=== PATIENT | female | born 1960 | race Caucasian/White ===

== ENCOUNTER → 2016-07-29 | Outpatient (CLI) | payer OTHER ==
[~2016-07-29] MED LIST: ASPI81TA28 PO; BNC/20125 PO; CHOL100010 PO; CRS20 PO; CYAN100048 PO; ESCI1TAB9 PO; GABA1CAP4 PO; IBUP1TAB PO; INSDGIPEN SQ; MAGN400T5 PO; MELA1TAB3 PO; MELOXICAM PO; NVLGI/PEN SQ; OMEG12006 PO
--- NOTE | 2016-07-30 12:48 | MAMMOGRAPHY REPORT ---
BILATERAL DIGITAL SCREENING MAMMOGRAM TOMOSYNTHESIS WITH CAD: 07/29/2016 CLINICAL HISTORY: Routine screening. Patient has no complaints. TECHNIQUE: Breast tomosynthesis in addition to standard 2D mammography was performed. Current study was also evaluated with a Computer Aided Detection (CAD) system. COMPARISON: Comparison is made to exams dated: 07/25/2015 mammogram, 07/22/2014 mammogram, 07/21/2013 ma mmogram - [facility], 06/18/2012 mammogram, 05/09/2010 mammogram, and 06/06/2011 mamm ogram - [facility]. BREAST COMPOSITION: There are scattered areas of fibroglandular density in both breasts. FINDINGS: There are mild vascular calcifications in the breasts. No suspicious mass, architectural distortion or cluster of microcalcifications is seen. IMPRESSION: ACR BI-RADS CATEGORY 1: NEGATIVE There is no mammographic evidence of malignancy. A 1 year screening mammogram is recommended. The p atient will receive written notification of the results. Approximately 10% of breast cancers are not detected with mammography. A negative mammographic repor t should not delay biopsy if a clinically suggestive mass is present. Alva Morales M.D. ay/:07/29/2016 21:44:42 Basic Combatant Swimmer: Rachana VILLANUEVAR, M, [facility] letter sent: Normal 1/2 BI-RADS Code: ACR BI-RADS Category 1: Negative
== END | disposition home or self-care (01) ==
LOC: C.MAMM 09:35
PROVIDERS: ATTEND Obstetrics & Gynecology
DX: Z12.31 Encounter for screening mammogram for malignant neoplasm of breast (principal)

== ENCOUNTER 2017-06-18 10:12 | Inpatient (IN) | payer OTHER ==
[~2017-06-18] VITALS: Ht 175.3 cm; Wt 97.0 kg
[~2017-06-18 10:12] MED LIST changes: +GABA-1219 PO; -GABA1CAP4 PO
[2017-06-18 11:51] VITALS: BP 116/81; PULSE 92; TEMP 36.5; O2SAT 100
[2017-06-18] MEDS ORDERED: ALUMINUM/MAGNESIUM/SIMETH (MAALOX MAX) 30 ML UDC PO PRN (12:15)
[2017-06-18] MEDS ORDERED: ACETAMINOPHEN 325 MG TAB PO PRN (12:15)
[2017-06-18] MEDS ORDERED: POLYETHYLENE (MIRALAX) 17 GM PACK PO PRN (12:15)
[2017-06-18] MEDS ORDERED: ONDANSETRON INJ 2 MG/ML 2 ML VIAL IV PRN (12:15)
[2017-06-18] MEDS ORDERED: MAGNESIUM HYDROXIDE SUSP 30 ML UDC PO PRN (12:15)
[2017-06-18 12:45] LABS: HEMATOCRIT 38.6 % (37-47); HEMOGLOBIN 13.6 g/dL (12.0-16.0); MEAN CELL VOLUME 79.4 fL (80-100); MEAN CORPUSCULAR HGB CONC 35.2 g/dl (32-36); MEAN PLATELET VOLUME 8.7 fL (7.4-10.4); PLATELET COUNT 225 K/uL (130-400); RED CELL DISTRIBUTION WIDTH CV 14.4 % (11.5-14.5); RED CELL DISTRIBUTION WIDTH SD 41.4 fL (36.4-46.3); WHITE BLOOD COUNT 5.77 K/uL (4.8-10.8)
[2017-06-18 12:56] LABS: INR 0.9 (0.9-1.1); PTT PATIENT 22.8 SECONDS (21.0-31.0)
[2017-06-18] MEDS ORDERED: ALBUT/IPRATROP 3MG/0.5MG NEB 3 ML VIAL INH PRN (13:00)
[2017-06-18] MEDS ORDERED: PATIENT'S HEIGHT AND/OR WEIGHT NEEDED SCH (13:00)
[2017-06-18 13:29] LABS: BLOOD UREA NITROGEN 12 mg/dl (7-18); CALCIUM 8.6 mg/dl (8.5-10.1); CARBON DIOXIDE 24 mmol/L (21-32); CREATININE 1.19 mg/dl (0.60-1.20); GLUCOSE 360 mg/dl (70-99); POTASSIUM 3.3 mmol/L (3.5-5.1); SODIUM 130 mmol/L (136-145)
[2017-06-18 13:37] VITALS: BMI 31.6
[2017-06-18 13:38] LABS: INFLUENZA B PCR Neg for Influ B (NEG)
[2017-06-18 13:40] LABS: INFLUENZA A PCR POS for Influ A (NEG)
[2017-06-18] MEDS ORDERED: LPT40 PO (13:43)
[2017-06-18] MEDS ORDERED: INSDGIPEN SC (13:43)
[2017-06-18] MEDS ORDERED: BENZ100C18 PO (13:43)
[2017-06-18] MEDS ORDERED: HMLIS SQ (13:43)
[2017-06-18] MEDS ORDERED: NRN300 PO (13:43)
[2017-06-18] MEDS ORDERED: ASPEC81 PO (13:43)
[2017-06-18] MEDS ORDERED: MONT1TAB3 PO (13:43)
[2017-06-18] MEDS ORDERED: ASCA500 PO (13:43)
[2017-06-18] MEDS ORDERED: IPRASOL4 INH (13:43)
[2017-06-18] MEDS ORDERED: FEXO1TAB46 PO (13:43)
[2017-06-18] MEDS ORDERED: LSN25 PO (13:43)
[2017-06-18] MEDS ORDERED: VTMD1000 PO (13:43)
[2017-06-18] MEDS ORDERED: PARO10TA PO (13:43)
[2017-06-18] MEDS ORDERED: OSELTAMIVIR PHOSPHATE 75 MG CAP PO STA (13:47)
[2017-06-18] MEDS ORDERED: METHYLPREDNISOLONE IV 80 MG in SYRINGE 0 ML IV SCH (14:00)
[2017-06-18] MEDS ORDERED: POTASSIUM CHLORIDE 20 MEQ TABCR PO STA (14:13)
[2017-06-18] MEDS ORDERED: INSULIN ASPART 100 UNITS/ML 3 ML PEN SQ SCH (14:14)
[2017-06-18] MEDS ORDERED: DEXTROSE 50% 50 ML SYR IV PRN (14:15)
[2017-06-18] MEDS ORDERED: GLUCAGON FOR INJ 1 MG VIAL SQ PRN (14:15)
[2017-06-18] MEDS ORDERED: GLUCOSE 10 TABS/TUBE PO PRN (14:15)
[2017-06-18] MEDS ORDERED: GLUCOSE 40% GEL 15 GM TUBE PO PRN (14:15)
--- NOTE | 2017-06-18 14:31 | History and Physical ---
History & Physical Date & Time of Service: Jun 18, 2017 at 14:21 Chief Complaint: Severe Asthmatic Bronchitis Primary Care Physician: Yfn Joshua D.O. Past Medical/Surgical History Medical Problems: (1) Asthma Immunizations History of Influenza Vaccine: No History of Tetanus Vaccine?: Yes History of Pneumococcal: No History of Hepatitis B Vaccine: No Allergies Coded Allergies: Penicillins (Verified Allergy, Mild, HIVES, 08/18/13) Home Medications Scheduled Ascorbic Acid (Vitamin C), 1 TAB PO DAILY Aspirin (Aspirin Ec), 81 MG PO DAILY Aspirin (Aspirin EC Low Dose), 1 TAB PO DAILY Atorvastatin (Lipitor), 1 TAB PO DAILY Benzonatate (Tessalon Perles), 2 CAP PO TID Cholecalciferol (Vitamin D3), 2 TAB PO DAILY Fexofenadine Hcl (Petty), 180 MG PO DAILY Gabapentin (Gabapentin), 900 MG PO HS Insulin Glargine (Lantus Solostar), 30 UNITS SQ HS Insulin Glargine (Lantus Solostar), 60 UNIT SC HS Insulin Human Lispro (Humalog Kwikpen), 1 UNIT SQ UD Ipratropium-Albuterol (Duoneb), 1 TREATMENT INH QID Lisinopril (Lisinopril), 1 TAB PO DAILY Montelukast Sodium (Singulair), 1 TAB PO DAILY Paroxetine Hcl (Paxil), 1 TAB PO DAILY Physical Exam Vital Signs Date Time Temp Pulse Resp B/P (MAP) Pulse Ox O2 Delivery O2 Flow Rate FiO2 06/18/17 14:04 Room Air 06/18/17 11:51 36.5 92 20 116/81 (93) 100 Room Air Diagnostics Laboratory Results Results Past 24 Hours Test 06/18/17 12:28 06/18/17 12:32 Range/Units Influenza Type A (RT-PCR) POS for Influ A NEG Influenza Type B (RT-PCR) Neg for Influ B NEG White Blood Count 5.77 4.8-10.8 K/uL Red Blood Count 4.86 4.2-5.4 M/uL Hemoglobin 13.6 12.0-16.0 g/dL Hematocrit 38.6 37-47 % Mean Corpuscular Volume 79.4 80-100 fL Mean Corpuscular Hemoglobin 28.0 25-34 pg Mean Corpuscular Hemoglobin Concent 35.2 32-36 g/dl RDW Standard Deviation 41.4 36.4-46.3 fL RDW Coefficient of Variation 14.4 11.5-14.5 % Platelet Count 225 130-400 K/uL Mean Platelet Volume 8.7 7.4-10.4 fL Prothrombin Time 9.8 9.0-12.0 SECONDS Prothromb Time International Ratio 0.9 0.9-1.1 Activated Partial Thromboplast Time 22.8 21.0-31.0 SECONDS Partial Thromboplastin Ratio 0.9 Sodium Level 130 136-145 mmol/L Potassium Level 3.3 3.5-5.1 mmol/L Chloride Level 96 98-107 mmol/L Carbon Dioxide Level 24 21-32 mmol/L Anion Gap 10.0 3-11 mmol/L Blood Urea Nitrogen 12 7-18 mg/dl Creatinine 1.19 0.60-1.20 mg/dl Estimated GFR () 59.5 Estimated GFR (Non- 51.4 BUN/Creatinine Ratio 10.3 10-20 Random Glucose 360 70-99 mg/dl Calcium Level 8.6 8.5-10.1 mg/dl Beta-Hydroxybutyric Acid 3.87 0.2-2.81 mg/dL Procalcitonin < 0.05 0-0.5 ng/ml Impression Assessment and Plan admit #[id number] Resuscitation Status VTE Prophylaxis Will order VTE Prophylaxis: Yes
--- NOTE | 2017-06-18 14:50 | HISTORY & PHYSICAL EXAMINATION ---
DATE OF ADMISSION: 06/18/2017 CHIEF COMPLAINT: Cough and shortness of breath. HISTORY OF PRESENT ILLNESS: The patient is a very pleasant 56-year-old female who notes that basically she has been sick nonstop since about the second week of February. She has had cough, shortness of breath, wheezing. She does note the last couple days have been worse. Her overall pattern has been that of an ongoing illness and on the last few days where she does note also that she was recently unfortunately around a friend who came down with influenza. However, she does note that her symptoms have really been ongoing for months. Per Dr. Galarza, she has had a violent cough beginning around [place] time, chest pressure worsened with coughing. She has had a cardiac workup that was negative. CT of the chest with adenopathy, mild bronchial wall thickening suggesting bronchitis, has been on multiple courses of antibiotics and apparently oral steroids, but continues to have coughing paroxysms that lead to several bouts of emesis daily. She is extremely tired, fatigued, chronic cough, hemoptysis has been noted. She denies fevers, chills, or sweats. She has not had flu shot, not up to date on pneumonia vaccine. To me, she also notes that she has had dripping from her washing machine, dripping through to the kitchen and she does wonder if she has mold. REVIEW OF SYSTEMS: Otherwise negative, except for as above. PAST MEDICAL HISTORY: Includes chronic asthmatic bronchitis, type 1 diabetes uncontrolled, depression, hyperlipidemia, and hypertension. HOME MEDICATIONS: Petty 180 mg daily, vitamin C 500 mg daily, aspirin 81 mg daily, atorvastatin 40 mg daily, Tessalon 200 mg t.i.d. p.r.n. cough, gabapentin 900 mg at bedtime, Humalog 1 unit per 5 carbs at breakfast and lunch 1 unit per 3 carbs at dinner, DuoNebs, Lantus 60 units at bedtime, lisinopril 2.5 daily, Paxil 10 mg daily, Singulair 10 mg daily, albuterol HFA q. 4 hours p.r.n. shortness of breath or wheeze and vitamin D 2000 international units daily. PAST SURGICAL HISTORY: Includes back surgery. FAMILY HISTORY: Includes her dad having had cardiovascular disease. There is also a family history of hypertension and hyperlipidemia. SOCIAL HISTORY: She is . She is never a smoker. No significant alcohol use. ALLERGIES: LISTED PENICILLINS. PHYSICAL EXAMINATION: VITAL SIGNS: Temp 36.5, pulse 92, respiratory rate 20, blood pressure 116/81, 100% on room air. GENERAL: She is awake, alert, oriented x3, fatigued appearing, but otherwise in no acute distress. HEENT: Normocephalic, atraumatic. Mucous membranes are moist. CARDIOVASCULAR: Regular without rubs, murmurs, or gallops. LUNGS: Diminished bibasilar with scattered wheeze and rhonchi throughout, more in the mid lungs and upper lungs and again definitely quite quiet at the bases. No accessory muscle use. ABDOMEN: Soft, nondistended, nontender, no masses or organomegaly. EXTREMITIES: Without cyanosis, clubbing or edema. No calf tenderness. SKIN: Shows no rashes, no pallor or icterus. NEUROLOGIC: Shows cranial nerves II-XII to be grossly intact. Gross motor and sensory intact. MUSCULOSKELETAL: Yields no gross lesions. MENTAL STATUS: Shows good recent and remote recall. Normal mood and affect. Good judgment and insight. LABORATORIES AND DIAGNOSTICS: Unavailable at this time. I am ordering an initial workup as well as Dr. Galarza is asking for the CT scan done in [place] to be loaded into the system. ASSESSMENT AND PLAN: 1. Cough/ongoing asthmatic bronchitis. The most likely differential for this is that she is suffering from multiple acute respiratory illnesses. It has been a very bad flu in pneumonia season and with her baseline history of asthmatic allergic asthma, it is very, very probable that she has simply been suffering from 1 respiratory illness after another without any full ability to recover. So, it is quite probable that her likely markedly uncontrolled diabetes suppressing her immune system set her up for this, but in the meantime, she also appears to be acutely ill, probably with the flu or a flu-like illness on top of all of this. We will check a flu swab, treat with Tamiflu if positive given the severity of her illness. We will treat the asthmatic portion of this with steroids and nebulizers. We will check a procalcitonin to help tease apart if there is any subtle indication for antibiotics given that per Dr. Galarza none were noted on her review of her CT scan. We will ask pulmonary to see her. It is possible she may need a bronchoscopic evaluation and then we will follow her clinically. In regards to her possible mold exposure, it seems far more likely that she is suffering from repeated and recurrent respiratory illnesses during the middle and tail end of what has now been a rather bad flu season far more likely than anything subtle and somewhat more esoteric like a house mold exposure. However, I discussed with her that certainly we should not rule this out entirely empirically and if bronchoscopy is needed, that may provide some insight as well as if she gets better in the hospital, but gets worse whenever she goes home. She notes other than this current hospitalization, the only other time she was in the hospital was at 23 hours at [facility], certainly not enough time to remove her from the allergens should that be the case. 2. Uncontrolled type 1 diabetes. Her last A1c was 11.8 at the end of October last year. We will recheck an A1c certainly. I anticipate the need to dramatically ramp up her insulins with a degree of baseline poor control superimposed with current steroids and acute illness. 3. Influenza as above, Tamiflu. 4. Hypertension. Continue her lisinopril. 5. Hyperlipidemia. Continue Lipitor. 6. Deep venous thrombosis prophylaxis, Lovenox.
[2017-06-18] MEDS: ALBUT/IPRATROP 3MG/0.5MG NEB 3 ML VIAL INH SCH ×2 (15:13→19:30)
[2017-06-18 15:16] VITALS: PULSE 95; O2SAT 98
[2017-06-18] MEDS: BENZONATATE 100MG CAP PO SCH ×2 (15:29→20:00)
[2017-06-18 15:44] VITALS: BMI 31.6
[2017-06-18 16:00] VITALS: BP 141/82; PULSE 85; TEMP 36.4; O2SAT 95
[2017-06-18] MEDS ORDERED: ALBUT/IPRATROP 3MG/0.5MG NEB 3 ML VIAL INH SCH (16:00)
[2017-06-18] MEDS ORDERED: PNEUMOCOCCAL POLYSACCHARIDES 25 MCG/0.5 ML VIAL/SYR IM. ONE (16:00)
[2017-06-18] MEDS ORDERED: PNEUMOCOCCAL ADMINISTRATION CHARGE ONE (16:00)
[2017-06-18] MEDS ORDERED: PANTOprazole SOD 40 MG TAB PO STA (16:37)
[2017-06-18] MEDS ORDERED: ACETAMINOPHEN/CODEINE 300/30MG TAB PO PRN (17:30)
[2017-06-18 19:30] VITALS: PULSE 88; O2SAT 98
[2017-06-18] MEDS: OSELTAMIVIR PHOSPHATE 75 MG CAP PO SCH (20:00)
[2017-06-18] MEDS: ENOXAPARIN 40 MG/0.4 ML SYR SQ SCH (21:00)
[2017-06-18] MEDS: GABAPENTIN 300 MG CAP PO SCH (21:00)
[2017-06-18] MEDS ORDERED: INSULIN GLARGINE SOLOSTAR 100 UNITS/ML 3 ML PEN SQ SCH (21:00)
[2017-06-18] MEDS ORDERED: INSULIN GLARGINE SOLOSTAR 100 UNITS/ML 3 ML PEN SC SCH (21:00)
[2017-06-18] MEDS ORDERED: INSULIN HUMAN REGULAR IV BOLUS 2.5 UNIT in SYRINGE 0 ML IV SCH (21:30)
[2017-06-18] MEDS: INSULIN REGULAR 250 UNITS in SODIUM CHLORIDE 0.9% 250ML 250 ML IV SCH ×2 (21:30→23:18)
[2017-06-18 21:35] VITALS: PULSE 92; O2SAT 98
[2017-06-18] MEDS ORDERED: PHARMACY GLYCEMIC MGMT CONSULT PRN (22:00)
[2017-06-18 23:35] VITALS: BP 146/77; PULSE 82; TEMP 36.4; O2SAT 97
[2017-06-19] VITALS (8 sets, daily range): BP systolic 130–157; BP diastolic 79–83; PULSE 77–100; TEMP 36.5–36.7; O2SAT 96–99; Ht 175.3 cm; Wt 97.0 kg
[2017-06-19] MEDS: INSULIN REGULAR 250 UNITS in SODIUM CHLORIDE 0.9% 250ML 250 ML IV SCH ×8 (00:19→23:27)
[2017-06-19] MEDS: METHYLPREDNISOLONE IV 40 MG in SYRINGE 0 ML IV SCH ×2 (01:22→13:48)
[2017-06-19 06:58] LABS: HEMOGLOBIN A1C 11.3 % (4.5-5.6)
[2017-06-19] MEDS: ALBUT/IPRATROP 3MG/0.5MG NEB 3 ML VIAL INH SCH ×4 (07:17→19:10)
[2017-06-19 07:23] LABS: CALCIUM 9.2 mg/dl (8.5-10.1); CREATININE 0.86 mg/dl (0.60-1.20); POTASSIUM 4.2 mmol/L (3.5-5.1)
[2017-06-19] MEDS ORDERED: ASPIRIN 81 MG ECTAB PO SCH (08:00)
[2017-06-19] MEDS ORDERED: LISINOPRIL 2.5 MG TAB PO SCH (08:00)
--- NOTE | 2017-06-19 08:12 | PULMONARY CONSULTATION ---
DATE OF CONSULTATION: 06/18/2017 TIME: 04:25 p.m. HISTORY OF PRESENT ILLNESS: The patient is a 56-year-old female with a chief complaint of a severe cough. This began in about the second week of February. She went to an urgent care on March 16. She subsequently went to urgent care again on March 23 because she was not feeling better. She has followed up with her family doctor. Over the course of the winter, she has been treated with 3 courses of prednisone without any benefit. She has had antibiotics including azithromycin and doxycycline without benefit. She has had benzonatate without benefit. She has been on nebulizer treatments with albuterol and ipratropium without significant benefit. She had Advair without benefit and it seemed to bother her throat. The cough bothers her daytime and nighttime. She awakened several times at night. She has had severe episodes of coughing, which precipitated vomiting. On some days, this occurs 3 or 4 times. The cough is violent at times. She feels tight. She notices wheezing. She went on a cruise in the [facility] in the early . She was definitely sick before the cruise. The temperature was so cold that she actually was staying most of the time inside her cabin. Her has not been sick until just the last day or two. She has noticed a small amount of coryza in the past couple of days. She denies heartburn except recently she has been getting heartburn while she drinks coffee. She has had recurring nosebleeds on the left side. She states it is almost every day and she will have to pack it for a few minutes. PAST SURGICAL HISTORY: 1. Back surgery x2. 2. Deviated septum repair in May 2016. PAST MEDICAL HISTORY: 1. Diabetes mellitus x9 years. 2. Hypercholesterolemia. 3. Prior hypertension, but subsequently she had low blood pressure and has been off of medicines except for being on lisinopril which she states was not specifically for the blood pressure. 4. Mild obesity. SOCIAL HISTORY: Tobacco never. ETOH -- None. ALLERGIES: PENICILLIN. FAMILY HISTORY: Mother age 72, dementia. Father age 54, heart disease. MEDICATIONS AT HOME: 1. Ascorbic acid. 2. Aspirin. 3. Atorvastatin. 4. Benzonatate. 5. Cholecalciferol. 6. Fexofenadine. 7. Gabapentin. 8. Lantus insulin. 9. Humalog insulin. 10. Albuterol/ipratropium by nebulizer. 11. Lisinopril 2.5 mg daily, which she has been on for 8 months. 12. Montelukast 10 mg daily. 13. Paroxetine 10 mg daily. REVIEW OF SYSTEMS: Negative except for the above-mentioned complaints. ENVIRONMENTAL HISTORY: The patient has 2 cats, which she has had her entire life. [place]. PHYSICAL EXAMINATION: GENERAL: The patient is a pleasant 56-year-old female who was cooperative, alert and oriented. She was in no distress at rest, but she was frequently coughing. Weight is 97 kilograms. BMI is 31.6. VITAL SIGNS: Temperature is 36.5. HEENT: Pupils were reactive to light. Nares were unremarkable. Mouth exam was unremarkable. NECK: Palpation of the neck reveals no lymph nodes. CHEST: Her respiratory rate was 20 breaths per minute. Wheezing was heard posteriorly bilaterally. Mild scattered rales were heard. Oxygen saturation is 98%. ABDOMEN: Soft. Bowel sounds were present. There was no tenderness to palpation or masses. EXTREMITIES: Showed no cyanosis, clubbing or edema. No rashes were noted. The patient had a CT angio of the chest at [facility] in April 2017. There was no pulmonary emboli. She had some calcified mediastinal lymph nodes. LABORATORY DATA: White count is 5.77. Hemoglobin 13.6. Platelets 225,000. Sodium is 130, potassium 3.3, chloride 96, and bicarbonate 24. Random blood sugar was 360. BUN was 12 with a creatinine of 1.19. Procalcitonin is less than 0.05. Flu test is positive for flu A. IMPRESSIONS: 1. Intractable undeterminted etiology. 2. Influenza A. The etiology of the cough is not clear. On clinical grounds. She is sounded like asthmatic bronchitis. She has never coughed up any phlegm. She has not responded to any treatment. Could consider reflux worsening her symptoms. She has been on lisinopril for about 8 months. Her cough is dry as the lisinopril coughs are, but she does sound a little wheezy, which is less common. Nonetheless, I believe lisinopril should be stopped. I believe we should order hypersensitivity pneumonitis profile. She does require potassium supplementation. Dr. Galarza is planning on doing a scope on Friday unless her symptoms are much improved. The possibility exists that she does have a lot of inspissated secretions that cannot be cleared. In light of her severe elevation of blood sugars, I think the methylprednisolone should be decreased to a significantly lower dose, perhaps 40 mg q. 12 hours. Case discussed with Dr. Bonilla. Thank you for asking me to assist in her care. SULY
[2017-06-19] MEDS: PANTOprazole SOD 40 MG TAB PO SCH (08:25)
[2017-06-19] MEDS: OSELTAMIVIR PHOSPHATE 75 MG CAP PO SCH ×2 (08:25→20:47)
[2017-06-19] MEDS: ATORVASTATIN 40 MG TAB PO SCH (08:25)
[2017-06-19] MEDS: ASCORBIC ACID 500 MG TAB PO SCH (08:25)
[2017-06-19] MEDS: ASPIRIN 81 MG ECTAB PO SCH (08:26)
[2017-06-19] MEDS: CHOLECALCIFEROL 1000 INTER.UNIT TAB PO SCH (08:27)
[2017-06-19] MEDS: FEXOFENADINE HCL 180 MG TAB PO SCH (08:27)
[2017-06-19] MEDS: BENZONATATE 100MG CAP PO SCH ×3 (08:27→20:48)
[2017-06-19] MEDS: PAROXETINE 20 MG TAB PO SCH (08:27)
--- NOTE | 2017-06-19 08:41 | PULMONARY PROGRESS NOTE ---
DATE: 06/19/2017 TIME: 8:20 a.m. SUBJECTIVE: The patient's cough is still severe. It did not change much. She had marked difficulty sleeping last night. Part of this was because her sugars were significantly elevated and they were frequently checking her blood sugars. The patient states that she was given some cough medicine with codeine that did seem to help some. She thinks her wheezing might be a little less. Nonetheless, the cough has not changed. This, however, is how it has been for a few months. OBJECTIVE: GENERAL: The patient was coughing frequently. Temperature is 36.7. She has not had any documented fever since admission. ENT: Exam is unchanged from yesterday. CARDIAC: Heart rate is 84 beats per minute. The rhythm is regular. Blood pressure 130/83. Saturation is 99% on room air. LUNGS: Lung little reveal very slight wheeze posteriorly in the lower lung little. EXTREMITIES: Show no cyanosis, clubbing or edema. Blood sugar this morning is 223. It appears her maximum blood sugar was 351. IMPRESSIONS: 1. Intractable cough of undetermined etiology. 2. Influenza A -- doubt this is the cause of her cough. COMMENTS AND RECOMMENDATIONS: The patient is receiving IV steroids, although we had cut the dose down last evening. She is on nebulizer treatments. She is on montelukast. She is on fexofenadine as an antihistamine. She is now on pantoprazole for possible reflux. She is also on benzonatate Perles. In spite of all this, she is coughing significantly. It will take days to know if the lisinopril is causing the cough. Dr. Galarza was planning on doing a bronchoscopy for tomorrow. We will try and verify with him if indeed he is planning on doing that.
[2017-06-19] MEDS: INSULIN ASPART 100 UNITS/ML 3 ML PEN SC SCH ×2 (08:43→13:53)
[2017-06-19] MEDS ORDERED: INSULIN GLARGINE SOLOSTAR 100 UNITS/ML 3 ML PEN SC ONE (09:00)
--- NOTE | 2017-06-19 09:16 | Pharmacy Progress Note ---
Glycemic Control Intl Consult Date of Service Jun 19, 2017. Scope Glycemic Pharmacist consulted by Dr Walker on 06/18/17 for glycemic control and to write orders per [facility] inpatient glycemic control protocol Objective Weight (Kilograms): 97.000 Accuchecks BSG (last 24hrs): Test 06/18/17 12:32 06/18/17 15:32 06/18/17 17:19 06/18/17 20:07 Random Glucose 360 mg/dl (70-99) Bedside Glucose 303 mg/dl (70-90) 337 mg/dl (70-90) 351 mg/dl (70-90) Test 06/18/17 23:00 06/18/17 23:58 06/19/17 01:03 06/19/17 02:10 Bedside Glucose 350 mg/dl (70-90) 314 mg/dl (70-90) 286 mg/dl (70-90) 278 mg/dl (70-90) Test 06/19/17 03:04 06/19/17 04:15 06/19/17 05:03 06/19/17 06:03 Bedside Glucose 247 mg/dl (70-90) 229 mg/dl (70-90) 232 mg/dl (70-90) Random Glucose 237 mg/dl (70-99) Test 06/19/17 06:08 06/19/17 07:05 06/19/17 08:05 Bedside Glucose 252 mg/dl (70-90) 248 mg/dl (70-90) 223 mg/dl (70-90) Laboratory Data (last 24hrs) Test 06/18/17 12:32 06/19/17 06:03 Anion Gap 10.0 mmol/L 8.0 mmol/L BUN/Creatinine Ratio 10.3 16.9 Blood Urea Nitrogen 12 mg/dl 15 mg/dl Creatinine 1.19 mg/dl 0.86 mg/dl Potassium Level 3.3 mmol/L 4.2 mmol/L Sodium Level 130 mmol/L 133 mmol/L White Blood Count 5.77 K/uL Hemoglobin A1c 11.3 % HbA1c Test 06/19/17 06:03 Hemoglobin A1c 11.3 % (4.5-5.6) H Recent Pertinent Medications Outpatient Anti-diabetic Regimen: * Lantus 60 units qHS * Humalog using CR 1 unit per 5 gm CHO w/ breakfast and lunch, 1 unit per 3 gm CHO w/ dinner The patient is currently receiving: * Basal insulin: Lantus 60 units every 24 hours * Correctional/prandial insulin: Insulin drip per moderate stress protocol titrated to goal 140-180 mg/dL Risk Factors for Insulin Resistance: * Steroids: Solu-medrol 80 mg IV q8h started yesterday, this has been decreased to 40 mg IV q12h * Infection: Influenza * Diet: Regular diet Assessment & Plan ASSESSMENT: * 56 y/o female with reported type 1 diabetes, admitted for influenza/asthmatic bronchitis * Per CDE assessment, patient reports previously being on oral agents and switched to Lantus + Humalog. She definitely seems to be more of a type 2 diabetic with the history of oral agent use and high doses of insulin * A1c is uncontrolled. 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 She did NOT take her dose of Lantus on 06/17. * Upon admission, she had BSGs in the 300s and was started on an aggressive Novolog scale in addition to her outpatient Lantus dose. When pharmacy received the consult last evening, an insulin drip was initiated d/t sustained elevated BSGs after fairly high doses of Novolog and continued high dose steroids. * This AM, insulin drip at 7.2 units/hr and has been increasing. BSGs improved but still above goal. * Plan will be to continue the outpatient Lantus but increase by 50%, giving an additional dose this AM * Will also continue the insulin drip d/t high dose steroids and high drip rates. Of note, patient may be NPO tomorrow for a bronch. PLAN FOR INPATIENT GLYCEMIC CONTROL: * Continue insulin drip with goal 140-180 mg/dL * Will provide orders for d/c of drip if rates fall to less than 1 unit/hr once basal insulin back on board * Give additional 30 units of Lantus this AM, continue 60 units qPM * Use set carb ratio of 1 unit per 3 gm CHO instead of insulin drip carb ratio * Change diet to type 1 diabetes * Please note that the plan above was derived based on current level of insulin resistance and hospital stress. These recommendations are appropriate for inpatient admission only. Plan of care upon discharge will need to be reassessed to avoid potential outpatient hypo/hyperglycemia. Thank you.
[2017-06-19] MEDS ORDERED: NURSING VERBAL MED ORDER ONE (10:45)
--- NOTE | 2017-06-19 16:53 | Progress Note ---
Subjective Date of Service: Jun 19, 2017. Subjective Pt evaluation today including: conversation w/ patient, physical exam, chart review, lab review, review of studies, conversation w/ human capital consultant, review of inpatient medication list Still persistent cough, is nonproductive, especially when deep breathing, associated with mild chest wall sore because of the cough Review of Systems Constitutional: No fever, No chills, No sweats, No weight loss, No weakness, No fatigue, No problem reported Eyes: No worsening of vision, No eye pain, No redness, No discharge, No diplopia ENT: No hearing loss, No unusual epistaxis, No nasal symptoms, No sore throat, No tinnitus, No dental problems, No trouble swallowing Respiratory: + cough, No sputum, No wheezing, No shortness of breath, No dyspnea on exertion, No dyspnea at rest, No hemoptysis Cardiac: No chest pain, No orthopnea, No PND, No edema, No claudication, No palpitations Abdomen: No pain, No nausea, No vomiting, No diarrhea, No constipation Musculoskeletal: No joint pain, No muscle pain, No swelling, No calf pain Female : No dysuria, No urinary frequency, No hematuria, No incontinence, No abnormal vaginal bleeding, No vaginal discharge Neurologic: No memory loss, No paralysis, No weakness, No numbness/tingling, No vertigo, No balance problems Psychiatric: No depression symptoms, No anhedonism, No anxiety, No insomnia, No substance abuse Heme: No abnormal bleeding/bruising, No clotting problems, No swollen lymph nodes, No night sweats Endo: No fatigue, No excessive thirst, No excessive urination Skin: No rash, No itch, No new/changing skin lesions, No color change, No bleeding Objective Vital Signs Date Time Temp Pulse Resp B/P (MAP) Pulse Ox O2 Delivery O2 Flow Rate FiO2 06/19/17 16:00 98 Room Air 06/19/17 15:32 36.6 87 20 135/79 (97) 98 Room Air 06/19/17 15:23 86 14 97 Room Air 06/19/17 11:21 91 14 96 Room Air 06/19/17 08:00 Room Air 06/19/17 07:34 36.7 84 18 130/83 (99) 99 Room Air 06/19/17 07:17 78 14 98 Room Air 06/19/17 00:00 Room Air 06/18/17 23:35 36.4 82 18 146/77 (100) 97 Room Air 06/18/17 21:35 92 18 98 Room Air 06/18/17 19:30 88 16 98 Room Air Physical Exam General Appearance: WD/WN, no apparent distress Eyes: normal inspection, PERRL, EOMI, sclerae normal ENT: normal ENT inspection, hearing grossly normal, pharynx normal Neck: supple, no adenopathy, thyroid normal, no JVD, no carotid bruits, trachea midline Respiratory/Chest: chest non-tender, normal breath sounds, no respiratory distress, no accessory muscle use, + decreased breath sounds, + wheezing ( Occasion) Cardiovascular: regular rate, rhythm, no edema, no gallop, no JVD, no murmur Abdomen: normal bowel sounds, non tender, soft, no organomegaly, no pulsatile mass Extremities: normal range of motion, non-tender, normal inspection, no pedal edema, no calf tenderness, normal capillary refill, pelvis stable 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, no motor/sensory deficits, alert, normal mood/affect, oriented x 3 Skin: normal color, warm/dry, no rash Lymphatic: no adenopathy Laboratory Results Last 24 Hours Test 06/18/17 17:19 06/18/17 17:35 06/18/17 20:07 06/18/17 23:00 Bedside Glucose 337 mg/dl 351 mg/dl 350 mg/dl Test 06/18/17 23:58 06/19/17 01:03 06/19/17 02:10 06/19/17 03:04 Bedside Glucose 314 mg/dl 286 mg/dl 278 mg/dl 247 mg/dl Test 06/19/17 04:15 06/19/17 05:03 06/19/17 06:03 06/19/17 06:08 Bedside Glucose 229 mg/dl 232 mg/dl 252 mg/dl Sodium Level 133 mmol/L Potassium Level 4.2 mmol/L Chloride Level 102 mmol/L Carbon Dioxide Level 23 mmol/L Anion Gap 8.0 mmol/L Blood Urea Nitrogen 15 mg/dl Creatinine 0.86 mg/dl Est Creatinine Clear Calc Drug Dose 91.6 ml/min Estimated GFR () 88.1 Estimated GFR (Non- 76.1 BUN/Creatinine Ratio 16.9 Random Glucose 237 mg/dl Estimated Average Glucose 278 mg/dl Hemoglobin A1c 11.3 % Calcium Level 9.2 mg/dl Test 06/19/17 07:05 06/19/17 08:05 06/19/17 08:59 06/19/17 09:55 Bedside Glucose 248 mg/dl 223 mg/dl 281 mg/dl Test 06/19/17 10:23 06/19/17 11:00 06/19/17 12:02 06/19/17 13:15 Bedside Glucose 328 mg/dl 317 mg/dl 268 mg/dl 241 mg/dl Test 06/19/17 14:13 06/19/17 15:04 06/19/17 16:00 Bedside Glucose 260 mg/dl 224 mg/dl 180 mg/dl Assessment and Plan 56-year-old white female admission from Dr. Lynn office because of cough and possible asthma, failed 3 full courses of antibiotics as outpatient Cough/ongoing asthmatic bronchitis. Uncontrolled type 1 diabetes A1c was 11.3 , increased Lantus to 62 unit at bedtime, continue insulin sliding scale Influenza as above, Tamiflu. Hypertension. Continue her lisinopril. Hyperlipidemia. Continue Lipitor. Continue steroids, nebulizer treatment, cough, pulmonology input appreciated, planning bronchoscope tomorrow, Continue Lantus, plus insulin sliding scale, has started Tamiflu, Deep venous thrombosis prophylaxis, Lovenox. Continued [facility] stay due to: multiple IV medications needed Discharge planning: home
[2017-06-19] MEDS: GUAIFENESIN/CODEINE 200MG/20MG 10ML UDC PO PRN (16:55)
[2017-06-19] MEDS ORDERED: INSULIN ASPART 100 UNITS/ML 3 ML PEN SC SCH (18:00)
[2017-06-19] MEDS: GABAPENTIN 300 MG CAP PO SCH (20:48)
[2017-06-19] MEDS: MONTELUKAST SOD 10 MG TAB PO SCH (20:49)
[2017-06-19] MEDS: ENOXAPARIN 40 MG/0.4 ML SYR SQ SCH (20:50)
[2017-06-19] MEDS: INSULIN GLARGINE SOLOSTAR 100 UNITS/ML 3 ML PEN SC SCH (22:20)
[2017-06-20] VITALS (11 sets, daily range): BP systolic 132–157; BP diastolic 75–85; PULSE 71–85; TEMP 36.4–36.8; O2SAT 94–97
[2017-06-20] MEDS: INSULIN REGULAR 250 UNITS in SODIUM CHLORIDE 0.9% 250ML 250 ML IV SCH ×10 (00:32→23:20)
[2017-06-20] MEDS: METHYLPREDNISOLONE IV 40 MG in SYRINGE 0 ML IV SCH ×2 (02:04→13:21)
[2017-06-20] MEDS: ALBUT/IPRATROP 3MG/0.5MG NEB 3 ML VIAL INH SCH ×4 (07:06→19:48)
--- NOTE | 2017-06-20 08:44 | History & Physical Bridge Note ---
H&P Re-Evaluation Bridge Note: I have examined the patient, reviewed the History & Physical and in the interval since the performance of the History & Physical I have noted the following changes of clinical significance: No changes noted
--- NOTE | 2017-06-20 08:45 | Pre Sedation Assessment ---
Pre Sedation Assessment General Date of Sedation: Jun 20, 2017. Vital Signs Past 12 Hours Date Time Temp Pulse Resp B/P (MAP) Pulse Ox O2 Delivery O2 Flow Rate FiO2 06/20/17 07:41 36.8 76 18 147/85 (105) 97 Room Air 06/20/17 07:08 85 18 97 Room Air 06/20/17 00:00 Room Air 06/19/17 23:46 36.5 77 18 157/83 (107) 97 Room Air Pre-Sedation Airway Assessment Smoking Status: Unknown if Ever Smoked Short Thick Neck: No Mallampati Classification: Class II ASA Classification: Class III Procedure Planning Contraindications for Sedation: None Current Medications Reviewed: Yes Notes The planned sedation has been discussed with the patient. Informed Consent was obtained. I have identified the patient, determined the appropriateness of sedation and have assessed the patient immediately prior to the procedure. All medicine(s) and interventions are by my order.
[2017-06-20] MEDS ORDERED: LIDOCAINE VISCOUS 2% 100ML TOP ONE (10:23)
[2017-06-20] MEDS ORDERED: FENTANYL CITRATE INJ 50 MCG/1 ML 2 ML VIAL IV ONE (10:23)
[2017-06-20] MEDS ORDERED: LIDOCAINE HCL 2% LOCAL 50ML VIAL INSTIL ONE (10:23)
[2017-06-20] MEDS ORDERED: MIDAZOLAM HCL 5 MG/ML 1 ML VIAL IV ONE (10:23)
[2017-06-20] MEDS ORDERED: OXYMETAZOLINE HCL 0.05% NA SPR 15 ML BTL ONE (10:23)
[2017-06-20] MEDS ORDERED: LEVALBUTEROL 1.25MG/3ML NEB INH ONE (10:23)
[2017-06-20] MEDS ORDERED: LIDOCAINE 4% INH SOLN 4 ML BTL INH ONE (10:23)
--- NOTE | 2017-06-20 10:30 | [facility] Operative Report ---
Operative Report Operative Date Jun 20, 2017. Pre-Operative Diagnosis Severe Asthmaic Bronchitis Post-Operative Diagnosis Severe Asthmaic Bronchitis Procedure(s) Performed Bronchoscopy Surgeon Geovanni Adjunct Professor Of Law Surgeon(s) None Estimated Blood Loss 0 Findings Severe Asthmatic Bronchitis w mucoid impaction Specimens Right and Left bronchial alveolar lavage Disposition I attest to the content of the Intraoperative Record and any orders documented therein. Any exceptions are noted below.
--- NOTE | 2017-06-20 10:31 | Post Sedation Assessment ---
Post Sedation Assessment General Date of Sedation Jun 20, 2017. Vital Signs: Vital Signs Past 12 Hours Date Time Temp Pulse Resp B/P (MAP) Pulse Ox O2 Delivery O2 Flow Rate FiO2 06/20/17 10:15 102 22 148/93 100 Mask 6 06/20/17 10:10 96 22 143/87 93 Mask 6 06/20/17 10:05 91 18 158/94 94 Mask 6 06/20/17 09:53 84 18 150/84 94 Room Air 06/20/17 08:00 Room Air 06/20/17 07:41 36.8 76 18 147/85 (105) 97 Room Air 06/20/17 07:08 85 18 97 Room Air 06/20/17 00:00 Room Air 06/19/17 23:46 36.5 77 18 157/83 (107) 97 Room Air Post Procedure Recovery Score Activity: (2) Moves 4 extremities * Respiration: (2) Deep breath/cough Circulation: (2) +/-20% PreAnes Value Consciousness: (1) Arouseable (by name) Oxygen Saturation: (1) O2 needed for >90% Discharge Sedation Level of Care: Fast Track Phase II Post Sedation Plan On clinical assessment, the patient appears to have tolerated the sedation without complications. Patient is recovering as anticipated. Patient will continue to be monitored by nursing and may be discharged when sedation discharge criteria are met per below protocol. Upon Completions of procedure and additional 15 minutes continue every 5 minute vital signs and the P.A.R. score; then discharge to a Phase I or Fast Track to Phase II per the following guidelines: * Discharge Patient to appropriate Phase II area if PAR is 8 or greater or return to pre- procedure baseline. The post - procedure orders will be as directed. * If PAR score is less than 8 or not return to pre-procedure baseline then patient will follow Phase I monitoring till PAR is reached for Phase II. The Phase I may be done in procedure room or may call to secure a Phase I area. * If naloxone or flumazenil are used for reversal, hold in Phase I for an additional 60 -120 minutes before discharge to Phase II. Please call the Sedation Physician to re-evaluate and complete post-note for discharge to Phase II area. Do NOT discharge from procedure sedation or Phase 1 until post- sedation evaluation note is complete by procedure /sedation MD Sedation Discharge Instructions to be given to the patient at discharge to home.
[2017-06-20] MEDS ORDERED: NURSING VERBAL MED ORDER ONE (10:45)
[2017-06-20] MEDS ORDERED: SODIUM CHLORIDE 0.9% 1000ML 1,000 ML IV SCH (10:45)
[2017-06-20] MEDS: INSULIN ASPART 100 UNITS/ML 3 ML PEN SC SCH ×4 (10:49→22:19)
[2017-06-20] MEDS: BENZONATATE 100MG CAP PO SCH ×3 (11:03→22:12)
--- NOTE | 2017-06-20 11:44 | OPERATIVE REPORT ---
DATE OF OPERATION: 06/20/2017 PROCEDURE: Fiberoptic bronchoscopy with bronchoalveolar lavage. INDICATIONS: Severe asthmatic bronchitis, rule out mucoid impaction. ANESTHESIA PREOPERATIVELY: None. ANESTHESIA DURING THE PROCEDURE: 5 mg of IV Versed, 100 mcg IV of fentanyl, 20 mL of 2% Xylocaine spray above and below the cords, and 4% viscous Xylocaine intranasally. DESCRIPTION OF PROCEDURE: Fiberoptic bronchoscope was inserted into the right naris with minimal difficulty and passed to the level of the true vocal cords. The cords appeared to approximate normally with phonation without evidence of lesions or paralysis. The area was anesthetized with 2% Xylocaine spray and the scope was then introduced into the right and left tracheobronchial tree. The subglottic region and trachea were well within normal limits. The sterling was sharp. The right main stem bronchus was explored initially and a global degree of moderately severe inflammatory mucosal change was seen. The right upper lobe, the apical posterior and anterior segments, bronchus intermedius, right middle lobe and the medial lateral segments and all basilar segments of the right lower lobe were found to be free of endobronchial lesions with a mild to moderate amount of mucoviscous secretion lavaged from each lobar segment to clear. Mucus plugging was visible with following installation of normal saline at the level of the right lower lobe orifice and segmental bronchi. The aspirate was then sent for appropriate studies. Left tracheobronchial tree was then explored and no endobronchial lesions were seen. Left upper lobe, the apical-posterior and anterior segments, lingular subdivision of the superior and inferior segments and all basilar segments of the left lower lobe were found to be free of endobronchial lesions down to subsegmental bronchi and after copiously lavaged with normosol, small whitish mucus plugs were seen, lavaged and aspirated from the subsegmental bronchi involving the left lower lobe. Following completion of this procedure, no brushings or biopsies were deemed necessary. Fluoroscopy was not utilized. The procedure was terminated and the patient was given a nebulizer treatment of Xopenex 1.25 mg and then transferred back to the medical floor, hemodynamically stable. No signs of respiratory compromise. We will await microbiological and cytologic examination of the bronchial washings. I attest to the content of the Intraoperative Record and any orders documented therein. Any exception s are noted below.
[2017-06-20] MEDS: GUAIFENESIN/CODEINE 200MG/20MG 10ML UDC PO PRN (12:31)
[2017-06-20] MEDS: FEXOFENADINE HCL 180 MG TAB PO SCH (12:32)
[2017-06-20] MEDS: CHOLECALCIFEROL 1000 INTER.UNIT TAB PO SCH (12:32)
[2017-06-20] MEDS: PANTOprazole SOD 40 MG TAB PO SCH (12:32)
[2017-06-20] MEDS: PAROXETINE 20 MG TAB PO SCH (12:32)
[2017-06-20] MEDS: ASCORBIC ACID 500 MG TAB PO SCH (12:32)
[2017-06-20] MEDS: ATORVASTATIN 40 MG TAB PO SCH (12:32)
[2017-06-20] MEDS: ASPIRIN 81 MG ECTAB PO SCH (12:32)
[2017-06-20] MEDS: OSELTAMIVIR PHOSPHATE 75 MG CAP PO SCH ×2 (12:33→22:11)
--- NOTE | 2017-06-20 15:52 | Progress Note ---
Subjective Date of Service: Jun 20, 2017. Subjective Pt evaluation today including: conversation w/ patient, physical exam, chart review, lab review, review of studies, review of inpatient medication list Bronchoscope this morning, not feeling tired, occasional wheezing, no appetite, Review of Systems Constitutional: + weakness, + fatigue, No fever, No chills, No sweats, No weight loss, No problem reported Eyes: No worsening of vision, No eye pain, No redness, No discharge, No diplopia ENT: No hearing loss, No unusual epistaxis, No nasal symptoms, No sore throat, No tinnitus, No dental problems, No trouble swallowing Respiratory: + cough, + wheezing, No sputum, No shortness of breath, No dyspnea on exertion, No dyspnea at rest, No hemoptysis Cardiac: + edema, No chest pain, No orthopnea, No PND, No claudication, No palpitations Abdomen: No pain, No nausea, No vomiting, No diarrhea, No constipation Musculoskeletal: No joint pain, No muscle pain, No swelling, No calf pain Female : No dysuria, No urinary frequency, No hematuria, No incontinence, No abnormal vaginal bleeding, No vaginal discharge Neurologic: No memory loss, No paralysis, No weakness, No numbness/tingling, No vertigo, No balance problems Psychiatric: No depression symptoms, No anhedonism, No anxiety, No insomnia, No substance abuse Heme: No abnormal bleeding/bruising, No clotting problems, No swollen lymph nodes, No night sweats Endo: No fatigue, No excessive thirst, No excessive urination Skin: No rash, No itch, No new/changing skin lesions, No color change, No bleeding Objective Vital Signs Date Time Temp Pulse Resp B/P (MAP) Pulse Ox O2 Delivery O2 Flow Rate FiO2 06/20/17 14:44 36.5 84 18 157/84 (108) 97 2.0 06/20/17 12:00 36.4 77 18 138/79 (98) 97 Nasal Cannula 3.0 06/20/17 11:30 36.4 79 18 132/75 (94) 97 Nasal Cannula 3.0 06/20/17 11:13 Oxymask 06/20/17 11:13 71 18 96 Room Air 2.0 06/20/17 11:00 74 16 132/80 (97) 96 Nasal Cannula 4.0 06/20/17 10:45 36.7 78 18 145/83 (103) 96 Nasal Cannula 4.0 06/20/17 10:35 81 22 134/75 96 Nasal Cannula 4 06/20/17 10:30 81 22 140/70 95 Nasal Cannula 4 06/20/17 10:25 78 20 128/74 100 Mask 6 06/20/17 10:20 83 20 136/78 97 Mask 6 06/20/17 10:15 102 22 148/93 100 Mask 6 06/20/17 10:10 96 22 143/87 93 Mask 6 06/20/17 10:05 91 18 158/94 94 Mask 6 06/20/17 09:53 84 18 150/84 94 Room Air 06/20/17 08:00 Room Air 06/20/17 07:41 36.8 76 18 147/85 (105) 97 Room Air 06/20/17 07:08 85 18 97 Room Air 06/20/17 00:00 Room Air 06/19/17 23:46 36.5 77 18 157/83 (107) 97 Room Air 06/19/17 19:11 100 18 96 Room Air 06/19/17 16:00 98 Room Air Physical Exam General Appearance: WD/WN, no apparent distress, + obese Eyes: normal inspection, PERRL, EOMI, sclerae normal ENT: normal ENT inspection, hearing grossly normal, pharynx normal Neck: supple, no adenopathy, thyroid normal, no JVD, no carotid bruits, trachea midline Respiratory/Chest: chest non-tender, normal breath sounds, no respiratory distress, no accessory muscle use, + decreased breath sounds, + wheezing Cardiovascular: regular rate, rhythm, no edema, no gallop, no JVD, no murmur Abdomen: normal bowel sounds, non tender, soft, no organomegaly, no pulsatile mass Extremities: normal range of motion, non-tender, normal inspection, no pedal edema, no calf tenderness, normal capillary refill, pelvis stable 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, no motor/sensory deficits, alert, normal mood/affect, oriented x 3 Skin: normal color, warm/dry, no rash Lymphatic: no adenopathy Laboratory Results Last 24 Hours Test 06/19/17 16:00 06/19/17 17:10 06/19/17 17:36 06/19/17 20:11 Bedside Glucose 180 mg/dl 134 mg/dl 124 mg/dl 378 mg/dl Test 06/19/17 21:56 06/19/17 23:07 06/20/17 00:27 06/20/17 01:27 Bedside Glucose 373 mg/dl 331 mg/dl 276 mg/dl 230 mg/dl Test 06/20/17 02:35 06/20/17 04:19 06/20/17 04:58 06/20/17 06:10 Bedside Glucose 130 mg/dl 67 mg/dl 120 mg/dl 119 mg/dl Test 06/20/17 07:00 06/20/17 07:53 06/20/17 09:04 06/20/17 10:15 Bedside Glucose 110 mg/dl 124 mg/dl 143 mg/dl Test 06/20/17 10:45 06/20/17 12:06 Bedside Glucose 157 mg/dl 172 mg/dl Assessment and Plan 56-year-old white female admission from Dr. Galarza's office because of cough and possible asthma, failed 3 full courses of antibiotics as outpatient Cough/ongoing asthmatic bronchitis, bronchoscope done today by Dr. Galarza, procedure went well per report: Possible have some mucus plugging Discussed with Dr. Galarza, taper down Solu-Medrol to oral prednisone, continue nebulizer treatment, increase activity, and follow-up with him in his office in 1 week Influenza as above, Tamiflu, continue Uncontrolled type 1 diabetes A1c was 11.3 , increased Lantus to 62 unit at bedtime, continue insulin sliding scale, taper down off steroids will help hypoglycemic condition Hypertension. Has discontinued her lisinopril, the cough may be from lisinopril too, will watch her blood pressure never Hyperlipidemia. Continue Lipitor. Continue steroids, nebulizer treatment, cough, pulmonology input appreciated, Deep venous thrombosis prophylaxis, Lovenox. Possible discharge home tomorrow Continued [facility] stay due to: multiple IV medications needed Discharge planning: home
[2017-06-20] MEDS: ENOXAPARIN 40 MG/0.4 ML SYR SQ SCH (21:00)
[2017-06-20] MEDS: MONTELUKAST SOD 10 MG TAB PO SCH (22:11)
[2017-06-20] MEDS: GABAPENTIN 300 MG CAP PO SCH (22:11)
[2017-06-20] MEDS: INSULIN GLARGINE SOLOSTAR 100 UNITS/ML 3 ML PEN SC SCH (22:18)
[2017-06-21] VITALS (9 sets, daily range): BP systolic 151–155; BP diastolic 77–95; PULSE 74–97; TEMP 36.3–36.6; O2SAT 93–97
[2017-06-21] MEDS: INSULIN REGULAR 250 UNITS in SODIUM CHLORIDE 0.9% 250ML 250 ML IV SCH ×12 (01:18→23:26)
[2017-06-21 06:14] LABS: HEMATOCRIT 38.6 % (37-47); HEMOGLOBIN 13.3 g/dL (12.0-16.0); MEAN CELL VOLUME 81.8 fL (80-100); MEAN CORPUSCULAR HEMOGLOBIN 28.2 pg (25-34); MEAN CORPUSCULAR HGB CONC 34.5 g/dl (32-36); PLATELET COUNT 237 K/uL (130-400); RED CELL DISTRIBUTION WIDTH CV 14.8 % (11.5-14.5); RED CELL DISTRIBUTION WIDTH SD 44.3 fL (36.4-46.3); WHITE BLOOD COUNT 10.17 K/uL (4.8-10.8)
[2017-06-21 06:58] LABS: CREATININE 0.8 mg/dl (0.60-1.20)
[2017-06-21] MEDS: ALBUT/IPRATROP 3MG/0.5MG NEB 3 ML VIAL INH SCH ×4 (07:12→19:30)
[2017-06-21] MEDS: ATORVASTATIN 40 MG TAB PO SCH (07:55)
[2017-06-21] MEDS: PAROXETINE 20 MG TAB PO SCH (07:56)
[2017-06-21] MEDS: CHOLECALCIFEROL 1000 INTER.UNIT TAB PO SCH (07:56)
[2017-06-21] MEDS: OSELTAMIVIR PHOSPHATE 75 MG CAP PO SCH ×2 (07:56→20:32)
[2017-06-21] MEDS: FEXOFENADINE HCL 180 MG TAB PO SCH (07:58)
[2017-06-21] MEDS: ASPIRIN 81 MG ECTAB PO SCH (07:58)
[2017-06-21] MEDS: ASCORBIC ACID 500 MG TAB PO SCH (07:58)
[2017-06-21] MEDS: BENZONATATE 100MG CAP PO SCH ×3 (07:58→20:31)
[2017-06-21] MEDS: PANTOprazole SOD 40 MG TAB PO SCH (07:59)
[2017-06-21] MEDS ORDERED: INSULIN PROTOCOL GOAL RANGE ONE (08:00)
--- NOTE | 2017-06-21 08:01 | PULMONARY PROGRESS NOTE ---
DATE: 06/21/2017 TIME: 7:40 a.m. SUBJECTIVE: The patient is coughing less. She had bronchoscopy done yesterday by Dr. Galarza. He found some secretions. Her cough has definitively decreased. She is still having wheezes, however. In spite of this, she does not feel short of breath. The Gram stain of bronchoscopy showed many polys but with few organisms. Culture is pending. Fungal smear was negative. OBJECTIVE: GENERAL: The patient is comfortable. She is coughing much less than when I had seen her previously. Temperature is 36.3. ENT: Exam is unremarkable. HEART: Heart rate is 90 per minute. The rhythm is regular. Blood pressure 154/77. LUNGS: Lung little reveal mild to moderate wheezes bilaterally. Respiratory rate is 18 and in no distress. Oxygen saturation on room air is 96%. EXTREMITIES: Show no cyanosis, clubbing or edema. The patient has had numerous blood sticks overnight for blood sugars on an hourly basis. The highest was 137. White count today is 10.17. Hemoglobin 13.3. Platelets 237,000. IMPRESSIONS: 1. Intractable cough -- improved. 2. Influenza A. COMMENTS: The cause of the cough is still not clear. It may be asthmatic bronchitis. There could be a reflux component. Lisinopril was stopped after admission and that could definitely play a role. The patient is stable from a respiratory perspective and I would have no objection to discharge from our end. I would send her home on prednisone at 40 mg per day. She should continue with nebulizer treatments at home. I would continue with pantoprazole upon discharge. It is not clear exactly what is helping but she is definitely better, although still has some wheezes. She is to follow up with Dr. Galarza next week.
[2017-06-21] MEDS: INSULIN ASPART 100 UNITS/ML 3 ML PEN SC SCH ×4 (08:42→21:56)
[2017-06-21] MEDS ORDERED: INSULIN GLARGINE SOLOSTAR 100 UNITS/ML 3 ML PEN SC SCH (09:00)
--- NOTE | 2017-06-21 10:05 | Pharmacy Progress Note ---
Pharmacy Glycemic Short Note 2 Date of Service Jun 21, 2017. OUTPATIENT ANTIDIABETIC REGIMEN: * Lantus 60 units qHS * Humalog using CR 1 unit per 5 gm CHO w/ breakfast and lunch, 1 unit per 3 gm CHO w/ dinner * A1c = 11.3% on 06/19/17 Item Value Date Time Bedside Glucose 179 mg/dl H 06/21/17 0902 Bedside Glucose 131 mg/dl H 06/21/17 0809 Bedside Glucose 132 mg/dl H 06/21/17 0701 Bedside Glucose 137 mg/dl H 06/21/17 0616 Bedside Glucose 109 mg/dl H 06/21/17 0500 Bedside Glucose 114 mg/dl H 06/21/17 0357 Bedside Glucose 103 mg/dl H 06/21/17 0303 Bedside Glucose 93 mg/dl H 06/21/17 0159 Bedside Glucose 97 mg/dl H 06/21/17 0105 Bedside Glucose 99 mg/dl H 06/21/17 0004 Bedside Glucose 98 mg/dl H 06/20/17 2309 Bedside Glucose 115 mg/dl H 06/20/17 2158 Bedside Glucose 169 mg/dl H 06/20/17 2102 Bedside Glucose 187 mg/dl H 06/20/17 2000 Bedside Glucose 199 mg/dl H 06/20/17 1919 Bedside Glucose 133 mg/dl H 06/20/17 1812 Bedside Glucose 154 mg/dl H 06/20/17 1708 Bedside Glucose 197 mg/dl H 06/20/17 1603 Bedside Glucose 229 mg/dl H 06/20/17 1505 Bedside Glucose 215 mg/dl H 06/20/17 1406 Bedside Glucose 189 mg/dl H 06/20/17 1315 Bedside Glucose 172 mg/dl H 06/20/17 1206 Bedside Glucose 157 mg/dl H 06/20/17 1045 Bedside Glucose 143 mg/dl H 06/20/17 0904 Bedside Glucose 124 mg/dl H 06/20/17 0753 Bedside Glucose 110 mg/dl H 06/20/17 0700 Bedside Glucose 119 mg/dl H 06/20/17 0610 Bedside Glucose 120 mg/dl H 06/20/17 0458 ASSESSMENT: * 56yo poorly controlled diabetic with significant steroid induced hyperglycemia. * Pt has been receiving outpatient SQ insulin dosing + IV insulin infusion while on high dose RTC steroids. IV insulin infusion is serving as "correctional " insulin for stress/steroid hyperglycemia. * Steroids have been changed from Solumendrol to Prednisone BIDM. Should see an improvement in BSGs with this step down in steroid dosing. * IV insulin infusion is running at ~ 3 units/hr in addition to outpatient SQ insulin dosing. * Will give additional dose of basal insulin to wean IV insulin infusion off in anticipation of d/c soon. * Continue to titrate insulin dosing based on BSG trends/steroid dosing PLAN FOR INPATIENT GLYCEMIC CONTROL: * Start to transition off of IV insulin infusion * Extra dose of Lantus 30 units SQ x 1 dose this AM * D/C IV insulin insulin infusion when BSG <180 mg/dl x 2 AND IV insulin infusion rate is below 1 unit/hr * Basal insulin * Lantus 62 units SQ HS * Bolus insulin * NovoLog per scale ACHS or Q6hrs while NPO * Goal Range: Low 110 mg/dL - High 160 mg/dL * Correction Factor: IV Insulin Infusion * Nutritional / Prandial insulin per carb ratio of 1 unit per 3 grams CHO consumed PLAN FOR DISCHARGE: * Poor outpatient control per recent A1c of 11.3% on 06/19/17 * Despite poor outpatient control, would not recommend significant dose adjustments as pt admits to not taking insulin/SMBG as prescribed. Pt may need BID Lantus dosing if discharged on BID prednisone. * A1c > 9% - follow-up with Leo on July 04 at 9:15am
[2017-06-21] MEDS ORDERED: DC IV INSULIN INFUSION SCH (11:00)
--- NOTE | 2017-06-21 14:16 | Progress Note ---
Subjective Date of Service: Jun 21, 2017. Subjective Pt evaluation today including: conversation w/ patient, physical exam, chart review, lab review, review of studies, conversation w/ outplacement consultant, review of inpatient medication list Feeling much better, up to the chair, less cough less wheezing, however blood glucose which is significantly high, still need insulin drip which is going on, Review of Systems Constitutional: No fever, No chills, No sweats, No weight loss, No weakness, No fatigue, No problem reported Eyes: No worsening of vision, No eye pain, No redness, No discharge, No diplopia ENT: No hearing loss, No unusual epistaxis, No nasal symptoms, No sore throat, No tinnitus, No dental problems, No trouble swallowing Respiratory: + cough, + wheezing, No sputum, No shortness of breath, No dyspnea on exertion, No dyspnea at rest, No hemoptysis Cardiac: No chest pain, No orthopnea, No PND, No edema, No claudication, No palpitations Abdomen: No pain, No nausea, No vomiting, No diarrhea, No constipation Musculoskeletal: No joint pain, No muscle pain, No swelling, No calf pain Female : No dysuria, No urinary frequency, No hematuria, No incontinence, No abnormal vaginal bleeding, No vaginal discharge Neurologic: No memory loss, No paralysis, No weakness, No numbness/tingling, No vertigo, No balance problems Psychiatric: No depression symptoms, No anhedonism, No anxiety, No insomnia, No substance abuse Heme: No abnormal bleeding/bruising, No clotting problems, No swollen lymph nodes, No night sweats Endo: No fatigue, No excessive thirst, No excessive urination Skin: No rash, No itch, No new/changing skin lesions, No color change, No bleeding Objective Vital Signs Date Time Temp Pulse Resp B/P (MAP) Pulse Ox O2 Delivery O2 Flow Rate FiO2 06/21/17 11:18 87 16 96 Room Air 06/21/17 08:00 96 Room Air 06/21/17 07:26 36.3 90 18 154/77 (102) 96 Room Air 06/21/17 07:13 74 16 96 Room Air 06/21/17 00:00 Room Air 06/20/17 23:00 36.7 75 18 147/79 (101) 94 Room Air 06/20/17 19:49 77 16 95 Room Air 06/20/17 16:00 Room Air 06/20/17 15:46 78 16 95 Nasal Cannula 2.0 06/20/17 14:44 36.5 84 18 157/84 (108) 97 2.0 Physical Exam General Appearance: WD/WN, no apparent distress Eyes: normal inspection, PERRL, EOMI, sclerae normal ENT: normal ENT inspection, hearing grossly normal, pharynx normal Neck: supple, no adenopathy, thyroid normal, no JVD, no carotid bruits, trachea midline Respiratory/Chest: chest non-tender, lungs clear, normal breath sounds, no respiratory distress, no accessory muscle use, + decreased breath sounds, + wheezing (Occasion) Cardiovascular: regular rate, rhythm, no edema, no gallop, no JVD, no murmur Abdomen: normal bowel sounds, non tender, soft, no organomegaly, no pulsatile mass Extremities: normal range of motion, non-tender, normal inspection, no pedal edema, no calf tenderness, normal capillary refill, pelvis stable Neurologic/Psychiatric: 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, no motor/sensory deficits, alert, normal mood/affect, oriented x 3 Skin: normal color, warm/dry, no rash Lymphatic: no adenopathy Laboratory Results Last 24 Hours Test 06/20/17 15:05 06/20/17 16:03 06/20/17 17:08 06/20/17 18:12 Bedside Glucose 229 mg/dl 197 mg/dl 154 mg/dl 133 mg/dl Test 06/20/17 19:19 06/20/17 20:00 06/20/17 21:02 06/20/17 21:58 Bedside Glucose 199 mg/dl 187 mg/dl 169 mg/dl 115 mg/dl Test 06/20/17 23:09 06/21/17 00:04 06/21/17 01:05 06/21/17 01:59 Bedside Glucose 98 mg/dl 99 mg/dl 97 mg/dl 93 mg/dl Test 06/21/17 03:03 06/21/17 03:57 06/21/17 05:00 06/21/17 06:03 Bedside Glucose 103 mg/dl 114 mg/dl 109 mg/dl White Blood Count 10.17 K/uL Red Blood Count 4.72 M/uL Hemoglobin 13.3 g/dL Hematocrit 38.6 % Mean Corpuscular Volume 81.8 fL Mean Corpuscular Hemoglobin 28.2 pg Mean Corpuscular Hemoglobin Concent 34.5 g/dl RDW Standard Deviation 44.3 fL RDW Coefficient of Variation 14.8 % Platelet Count 237 K/uL Mean Platelet Volume 9.0 fL Creatinine 0.80 mg/dl Est Creatinine Clear Calc Drug Dose 98.5 ml/min Estimated GFR () 96.2 Estimated GFR (Non- 83.0 Test 06/21/17 06:16 06/21/17 07:01 06/21/17 08:09 06/21/17 09:02 Bedside Glucose 137 mg/dl 132 mg/dl 131 mg/dl 179 mg/dl Test 06/21/17 10:21 06/21/17 11:19 06/21/17 12:26 06/21/17 13:24 Bedside Glucose 215 mg/dl 177 mg/dl 136 mg/dl 178 mg/dl Assessment and Plan 56-year-old white female admission from Dr. Galarza's office on June 19, 2017 because of cough and possible asthma, failed 3 full courses of antibiotics as outpatient Cough/ongoing asthmatic bronchitis, bronchoscope done on June 21, [address] Galarza, procedure went well per report: Possible have some mucus plugging Discussed with Dr. Gaalrza, continue taper down Solu-Medrol to oral prednisone, continue nebulizer treatment, increase activity, and follow-up with him in his office in 1 week Influenza as above, Tamiflu, continue Uncontrolled type 1 diabetes A1c was 11.3 , increased Lantus to 62 unit at bedtime, continue insulin drip, continue insulin sliding scale, taper down off steroids will help hypoglycemic condition Hypertension. Has discontinued her lisinopril, the cough may be from lisinopril too, will watch her blood pressure never Patient systolic blood pressure was at 150s, will not give any blood pressure medicine for now Hyperlipidemia. Continue Lipitor. not Discharge patient today because of still significant hyperglycemia which required insulin drip, Deep venous thrombosis prophylaxis, Lovenox. Possible discharge home tomorrow Continued [facility] stay due to: multiple IV medications needed Discharge planning: home
[2017-06-21] MEDS: INSULIN GLARGINE SOLOSTAR 100 UNITS/ML 3 ML PEN SC SCH (17:46)
[2017-06-21] MEDS: GABAPENTIN 300 MG CAP PO SCH (20:34)
[2017-06-21] MEDS: MONTELUKAST SOD 10 MG TAB PO SCH (20:35)
[2017-06-21] MEDS: ENOXAPARIN 40 MG/0.4 ML SYR SQ SCH (20:35)
[2017-06-22] MEDS: INSULIN REGULAR 250 UNITS in SODIUM CHLORIDE 0.9% 250ML 250 ML IV SCH (00:30)
[2017-06-22] MEDS: INSULIN ASPART 100 UNITS/ML 3 ML PEN SC SCH ×2 (04:00→08:35)
[2017-06-22 07:05] VITALS: PULSE 88; O2SAT 97
[2017-06-22] MEDS: ALBUT/IPRATROP 3MG/0.5MG NEB 3 ML VIAL INH SCH (07:05)
[2017-06-22 07:53] VITALS: BP 150/81; PULSE 94; TEMP 36.8; O2SAT 96
[2017-06-22] MEDS: FEXOFENADINE HCL 180 MG TAB PO SCH (08:29)
[2017-06-22] MEDS: OSELTAMIVIR PHOSPHATE 75 MG CAP PO SCH (08:29)
[2017-06-22] MEDS: ASCORBIC ACID 500 MG TAB PO SCH (08:29)
[2017-06-22] MEDS: CHOLECALCIFEROL 1000 INTER.UNIT TAB PO SCH (08:29)
[2017-06-22] MEDS: PAROXETINE 20 MG TAB PO SCH (08:30)
[2017-06-22] MEDS: ASPIRIN 81 MG ECTAB PO SCH (08:30)
[2017-06-22] MEDS: BENZONATATE 100MG CAP PO SCH (08:31)
[2017-06-22] MEDS: ATORVASTATIN 40 MG TAB PO SCH (08:31)
[2017-06-22] MEDS ORDERED: IPRA1AER2 INH (08:33)
[2017-06-22] MEDS ORDERED: TMF75 PO (08:33)
[2017-06-22] MEDS ORDERED: PRED10TA PO (08:33)
--- NOTE | 2017-06-22 08:36 | Discharge Instructions ---
Discharge Instructions Date of Service Jun 22, 2017. Admission Reason for Admission: Severe Asthmatic Bronchitis Discharge Discharge Diagnosis / Problem: asthmatic bronchitis, Discharge Goals Goal(s): Decrease discomfort, Improve function, Increase independence, Improve disease control, Improve nutritional status, Learn about illness, Diagnostic testing, Therapeutic intervention, Prevent Disease Progression, Specific goals Activity Recommendations Activity Limitations: resume your previous activity . Instructions / Follow-Up Instructions / Follow-Up you ahve asthmatic bronchitis, bronchoscope done on June 21, [address] Galarza p you have Influenza, continue Tamiflu you have Uncontrolled type 1 diabetes A1c was 11.3 , increased Lantus to 62 unit at bedtime, you have Hypertension. Has discontinued Lisinopril, the cough may be from Lisinopril too, will watch her blood pressure, need to follow up with PCP to decide new mediation or not I am giving oyu tapering dose of Prednison. - you need to follow up with your primary care physician in 1 week, - take medication as instructed, never overdose or any misuse, or take with alcohol, because misuse of medicine may cause organ damage or , call your primary care physician if have questions of medicaitons. - call your primary care physician OR go to local emergency room if has any fever/chill, chest pain, shortness of breathing, nausea/vomiting/abdominal pain , facial droop/slurry speech/local weakness, or if has any questions. - fall precaution - diet as instructed - you need to follow up with your subspecialist Dr. Galarza in 1-2 week Current Hospital Diet Patient's current hospital diet: Diabetes Type 1 Diet Discharge Diet Recommended Diet: Diabetes Type 1 Diet Procedures Procedures Performed: Bronchoscopy Pending Studies Studies pending at discharge: no Laboratory Results Hemoglobin A1c Test 06/19/17 06:03 Range/Units Estimated Average Glucose 278 mg/dl Hemoglobin A1c 11.3 H 4.5-5.6 % Medical Emergencies . Who to Call and When: Medical Emergencies: If at any time you feel your situation is an emergency, please call 911 immediately. . Non-Emergent Contact Non-Emergency issues call your: Primary Care Provider, [employer] . . "Provider Documentation" section prepared by Ferdinand Stearns. .
[2017-06-22] MEDS ORDERED: LOSARTAN POTASSIUM 25 MG TAB PO STA (08:57)
[2017-06-22] MEDS ORDERED: LOSA1TAB PO (08:58)
[2017-06-22] MEDS ORDERED: INSULIN GLARGINE SOLOSTAR 100 UNITS/ML 3 ML PEN SC SCH ×2 (09:00→21:00)
[2017-06-22 09:54] VITALS: BP 150/81; PULSE 94; TEMP 36.8; O2SAT 96
--- NOTE | 2017-06-22 13:22 | Discharge Summary ---
Discharge Summary Date of Service Jun 22, 2017. Discharge Summary Admission Date: Jun 18, 2017 at 11:20 Discharge Date: Jun 22, 2017 Discharge Disposition: Home Principal Diagnosis: asthmatic bronchitis Problems/Secondary Diagnoses: Influenza, Uncontrolled type 1 diabetes A1c was 11.3 , Hypertension. Immunizations: Have You Had Influenza Vaccine: No History of Tetanus Vaccine?: Yes History of Pneumococcal: No History of Hepatitis B Vaccine: No Procedures: Feeling good, up and walk, ready to go home, Consultations: [employer] Medication Reconciliation New Medications: Ipratropium-Albuterol (Combivent Respimat) 1 Aer Aer 7 PUFFS INH QID, #1 INH Losartan Potassium (Cozaar) 25 Mg Tab 1 TAB PO DAILY for 30 Days, #30 TAB 5 Refills Prednisone Tab (Prednisone) 10 Mg Tab 10 MG PO Q12 for 10 Days, #38 TAB 35mg po daily for 3 days, then 30mg pod daily for 3 days, then 25mg po daily for 3 days, then 20mg po daily for 3 days, then 10mg po daily for 3 days, then stop Oseltamivir Phosphate (Tamiflu) 75 Mg Cap 75 MG PO BID for 2 Days, CAP Continued Medications: Ascorbic Acid (Vitamin C) 500 Mg Tab 1 TAB PO DAILY, #1 TAB Aspirin (Aspirin Ec) 81 Mg Tab 81 MG PO DAILY ADVISED PER SURGEONS OFFICE TO STOP ONE WEEK IN ADVANCE Atorvastatin (Lipitor) 40 Mg Tab 1 TAB PO DAILY, #1 TAB Benzonatate (Tessalon Perles) 100 Mg Cap 2 CAP PO TID for 7 Days, #21 CAP Cholecalciferol (Vitamin D3) 1,000 Inter.unit Tab 2 TAB PO DAILY, #1 TAB Gabapentin (Gabapentin) 300 Mg Cap 900 MG PO HS, #1 TAB Insulin Glargine (Lantus Solostar) 100 Unit/Ml Inj 60 UNIT SC HS, #1 PEN Insulin Human Lispro (Humalog Kwikpen) 100 Units/Ml Inj 1 UNIT SQ UD, #1 PEN Ipratropium-Albuterol (Duoneb) 3 Ml Nebu 1 TREATMENT INH QID, #1 INHA Montelukast Sodium (Singulair) 10 Mg Tab 1 TAB PO DAILY for 90 Days, #90 TAB 1 Refill Paroxetine Hcl (Paxil) 10 Mg Tab 1 TAB PO DAILY for 30 Days, #30 TAB 3 Refills Discontinued Medications: Lisinopril (Lisinopril) 2.5 Mg Tab 1 TAB PO DAILY, #1 TAB Discharge Exam Doing okay, eating well, no complaint Review of Systems: Constitutional: No fever, No chills, No sweats, No weight loss, No weakness , No fatigue, No problem reported Eyes: No worsening of vision, No eye pain, No redness, No discharge, No diplopia, No problem reported ENT: No hearing loss, No unusual epistaxis, No nasal symptoms, No sore throat, No tinnitus, No dental problems, No trouble swallowing, No problem reported Respiratory: + cough, + shortness of breath Cardiovascular: No chest pain, No orthopnea, No PND, No edema, No claudication, No palpitations, No problem reported Abdomen: No pain, No nausea, No vomiting, No diarrhea, No constipation, No GI bleeding, No problem reported Musculoskeletal: No joint pain, No muscle pain, No swelling, No calf pain, No problem reported Genitourinary - Female: No dysuria, No urinary frequency, No urinary urgency , No urinary incontinence, No urinary retention, No hematuria, No dysmenorrhea, No menorrhagia, No metrorrhagia, No rash, No vaginal bleeding, No vaginal discharge, No vaginal itching, No vulvodynia, No , No problem reported Neurologic: No memory loss, No paralysis, No weakness, No numbness/tingling , No vertigo, No balance problems, No problem reported Psychiatric: No depression symptoms, No anhedonism, No anxiety, No insomnia , No substance abuse, No problem reported Endocrine: No fatigue, No excessive thirst, No excessive urination, No problem reported Hematologic / Lymphatic: No abnormal bleeding/bruising, No clotting problems , No swollen lymph nodes, No night sweats, No problem reported Integumentary: No rash, No itch, No new/changing skin lesions, No color change, No bleeding, No problem reported Physical Exam: General Appearance: WD/WN, no apparent distress Eyes: normal inspection, PERRL ENT: normal ENT inspection, hearing grossly normal Neck: supple, no adenopathy, thyroid normal Respiratory/Chest: chest non-tender, + decreased breath sounds, + wheezing ( Occasional wheezing) Cardiovascular: regular rate, rhythm, no edema, no gallop, no JVD, no murmur , normal peripheral pulses Abdomen / GI: normal bowel sounds, non tender, soft, no organomegaly, no pulsatile mass Extremities: normal inspection, no calf tenderness, normal capillary refill , no pedal edema Neurologic/Psychiatric: 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 Galaraz's office on June 19, 2017 because of cough and possible asthma, failed 3 full courses of antibiotics as outpatient Cough/ongoing asthmatic bronchitis, bronchoscope done on June 21, [address] Galarza, procedure went well per report: Possible have some mucus plugging Discussed with Dr. Galarza, continue taper down Solu-Medrol to oral prednisone, continue nebulizer treatment, increase activity, and follow-up with him in his office in 1 week Influenza as above, Tamiflu, continue Uncontrolled type 1 diabetes A1c was 11.3 , has been on insulin drip, and insulin sliding scale, taper down off steroids , restart Lantus after stop insulin drip, blood glucose has been so far so good, around 150s Hypertension. Has discontinued her lisinopril, the cough may be from lisinopril too, lisinopril discontinued in this admission Patient systolic blood pressure was at 150s, start losartan p.o. for optimal blood pressure control because patient is type I diabetic uncontrolled which will have been protected of kidney function Hyperlipidemia. Continue Lipitor. significant hyperglycemia which required insulin drip in this admission, told patient to follow-up her pediatric allergist, she agreed Deep venous thrombosis prophylaxis, Lovenox. discharge home today Instructions / Follow-Up you ahve asthmatic bronchitis, bronchoscope done on June 21, [address] Galarza , p you have Influenza, continue Tamiflu you have Uncontrolled type 1 diabetes A1c was 11.3 , increased Lantus to 62 unit at bedtime, you have Hypertension. Has discontinued Lisinopril, the cough may be from Lisinopril too, losartan 25 minute was at home started I am giving you tapering dose of Prednisone - you need to follow up with your primary care physician in 1 week, - take medication as instructed, never overdose or any misuse, or take with alcohol, because misuse of medicine may cause organ damage or , call your primary care physician if have questions of medicaitons. - call your primary care physician OR go to local emergency room if has any fever/chill, chest pain, shortness of breathing, nausea/vomiting/abdominal pain , facial droop/slurry speech/local weakness, or if has any questions. - fall precaution - diet as instructed - you need to follow up with your subspecialist Dr. Galarza in 1-2 week Total Time Spent: Greater than 30 minutes This includes examination of the patient, discharge planning, medication reconciliation, and communication with other providers. Discharge Instructions Please refer to the electronic Patient Visit Report (Discharge Instructions) for additional information. Additional Copies To [employer]fn Joshua D.O.; Moiz Galarza M.D.
== END 2017-06-22 10:33 | disposition home or self-care (01) | DRG 168 ==
LOC: C.4E 11:20
PROVIDERS: ADMIT Hospitalist; ATTEND Hospitalist
PROC: 0BC68ZZ Extirpation of Matter from Right Lower Lobe Bronchus, Via Natural or Artificial Opening Endoscopic (ICD-10-PCS; principal; 2017-06-20 10:00)
PROC: 0BCB8ZZ Extirpation of Matter from Left Lower Lobe Bronchus, Via Natural or Artificial Opening Endoscopic (ICD-10-PCS; principal; 2017-06-20 10:00)
PROC: 0B9J8ZX Drainage of Left Lower Lung Lobe, Via Natural or Artificial Opening Endoscopic, Diagnostic (ICD-10-PCS; principal; 2017-06-20 10:00)
PROC: 0B9F8ZX Drainage of Right Lower Lung Lobe, Via Natural or Artificial Opening Endoscopic, Diagnostic (ICD-10-PCS; principal; 2017-06-20 10:00)
DX: T17.990A Other foreign object in respiratory tract, part unspecified in causing asphyxiation, initial encounter (principal); J10.1 Influenza due to other identified influenza virus with other respiratory manifestations; J44.9 Chronic obstructive pulmonary disease, unspecified; J45.909 Unspecified asthma, uncomplicated; E10.9 Type 1 diabetes mellitus without complications; E78.5 Hyperlipidemia, unspecified; E78.00 Pure hypercholesterolemia, unspecified; I10 Essential (primary) hypertension; F32.9 Major depressive disorder, single episode, unspecified; E66.9 Obesity, unspecified; Z51.81 Encounter for therapeutic drug level monitoring; Z79.899 Other long term (current) drug therapy; Z79.82 Long term (current) use of aspirin; Z68.31 Body mass index [BMI] 31.0-31.9, adult; Z88.0 Allergy status to penicillin; Z82.49 Family history of ischemic heart disease and other diseases of the circulatory system; Z83.49 Family history of other endocrine, nutritional and metabolic diseases; Z81.8 Family history of other mental and behavioral disorders; X58.XXXA Exposure to other specified factors, initial encounter

== ENCOUNTER → 2017-07-30 | Outpatient (CLI) | payer OTHER ==
[~2017-07-30] MED LIST changes: +ASCA500 PO; -BNC/20125 PO; -CHOL100010 PO; -CRS20 PO; -CYAN100048 PO; -ESCI1TAB9 PO; -GABA-1219 PO; +HMLIS SQ; -IBUP1TAB PO; +INSDGIPEN SC; -INSDGIPEN SQ; +IPRA1AER2 INH; +IPRASOL4 INH; +LOSA1TAB PO; +LPT40 PO; -MAGN400T5 PO; -MELA1TAB3 PO; -MELOXICAM PO; +MONT1TAB3 PO; +NRN300 PO; -NVLGI/PEN SQ; -OMEG12006 PO; +PARO10TA PO; +TMF75 PO; +VTMD1000 PO
--- NOTE | 2017-07-30 15:05 | MAMMOGRAPHY REPORT ---
BILATERAL DIGITAL SCREENING MAMMOGRAM TOMOSYNTHESIS WITH CAD: 07/30/2017 CLINICAL HISTORY: Routine screening. Patient has no complaints. TECHNIQUE: Breast tomosynthesis in addition to standard 2D mammography was performed. Current study was also evaluated with a Computer Aided Detection (CAD) system. COMPARISON: Comparison is made to exams dated: 07/29/2016 mammogram, 07/25/2015 mammogram, 07/22/2014 mamm ogram, and 07/21/2013 mammogram - [facility]. BREAST COMPOSITION: There are scattered areas of fibroglandular density in both breasts. FINDINGS: No suspicious masses, calcifications, or areas of architectural distortion are noted in ei ther breast. There has been no significant interval change compared to prior exams. IMPRESSION: ACR BI-RADS CATEGORY 1: NEGATIVE There is no mammographic evidence of malignancy. A 1 year screening mammogram is recommended. The pa tient will receive written notification of the results. Approximately 10% of breast cancers are not detected with mammography. A negative mammographic report should not delay biopsy if a clinically suggestive mass is present. Deya Gonzales M.D. ah/:07/30/2017 10:25:40 Passenger Service Representative: Anaya Dodson RT(R)(M), [facility] letter sent: Normal 1/2 BI-RADS Code: ACR BI-RADS Category 1: Negative
== END | disposition home or self-care (01) ==
LOC: C.MAMM 09:37
PROVIDERS: ATTEND Obstetrics & Gynecology
DX: Z12.31 Encounter for screening mammogram for malignant neoplasm of breast (principal)